=== PATIENT | male | born 1955 | race Caucasian/White ===

== ENCOUNTER 2019-04-06 08:55 | Outpatient (CLI) | payer MEDICARE ==
--- NOTE | 2019-04-06 11:13 | RAD ---
RADIOGRAPH CHEST 2 VIEWS: HISTORY: 63-year-old male with COPD presents with dyspnea. FINDINGS: There is no air space density, pulmonary edema, pleural effusion, pneumothorax, or cardiomegaly. IMPRESSION: No acute cardiopulmonary findings. jn [] POS: CET
== END 2019-04-06 08:56 | disposition home or self-care (01) ==
LOC: BICRAD 08:55
PROVIDERS: ATTEND Family Medicine
DX: J44.9 Chronic obstructive pulmonary disease, unspecified (principal); R06.09 Other forms of dyspnea
CPT/HCPCS: 36415; 71046; 80053; 80061; 81001; 85025

== ENCOUNTER 2019-06-29 14:37 | Outpatient (CLI) | payer MEDICARE, OTHER ==
--- NOTE | 2019-06-29 15:20 | RAD ---
XR Chest Pa Lat @ [facility] HISTORY: Dyspnea COMPARISON: 04/06/2019 FINDINGS: The heart size is normal. The lungs are well expanded without focal areas of consolidation, pneumothorax or pleural effusions. IMPRESSION: No radiographic evidence of acute cardiopulmonary process.
== END 2019-06-29 14:38 | disposition home or self-care (01) ==
LOC: RAD 14:37
PROVIDERS: ATTEND Family Medicine
DX: R06.00 Dyspnea, unspecified (principal)
CPT/HCPCS: 71046

== ENCOUNTER 2022-12-19 10:39 | Outpatient (CLI) | payer OTHER | END 2022-12-19 10:40 | disposition home or self-care (01) | LOC: BICCT 10:39 | PROVIDERS: ATTEND Family Medicine | DX: Z12.2 Encounter for screening for malignant neoplasm of respiratory organs (principal); F17.200 Nicotine dependence, unspecified, uncomplicated; J43.2 Centrilobular emphysema; K80.20 Calculus of gallbladder without cholecystitis without obstruction; N28.1 Cyst of kidney, acquired | CPT/HCPCS: 71271 ==

== ENCOUNTER 2025-06-03 08:23 | Outpatient (CLI) | payer MEDICARE | END 2025-06-03 08:24 | disposition home or self-care (01) | LOC: BICCT 08:23 | PROVIDERS: ATTEND Family Medicine | DX: Z13.6 Encounter for screening for cardiovascular disorders (principal); Z12.2 Encounter for screening for malignant neoplasm of respiratory organs; F17.218 Nicotine dependence, cigarettes, with other nicotine-induced disorders; I71.40 Abdominal aortic aneurysm, without rupture, unspecified; K80.20 Calculus of gallbladder without cholecystitis without obstruction | CPT/HCPCS: 71271; 76775 ==

== ENCOUNTER 2025-10-01 08:38 | Emergency (ER) | payer MEDICARE ==
[2025-10-01 10:17] LABS: #Basophils 0.06 10x3/uL (0.0-0.2); #Eosinophils 0.22 10x3/uL (0.0-0.7); #Monocytes 1.75 10x3/uL (0.11-0.59); #Neutrophils 10.80 10x3/uL (1.40-6.50); %Basophils 0.4 % (0.0-1.0); %Eosinophils 1.5 % (0.0-10.0); %Lymphocytes 14.0 % (21.0-51.0); %Monocytes 11.7 % (0.0-10.0); %Neutrophils 71.9 % (42.0-75.0); Hematocrit 43.0 % (42.0-52.0); Hemoglobin 14.9 g/dL (14.0-18.0); Mean Corpuscular Hemoglobin 30.2 pg (27.0-31.0); Mean Corpuscular Volume 87.0 fL (78.0-98.0); Platelet Count 298 10x3/uL (130-400); Red Blood Cell (RBC) Count 4.94 mill/uL (4.70-6.10); White Blood Cell (WBC) Count 15.02 10x3/uL (4.8-10.8)
[2025-10-01 10:43] LABS: ALT (SGPT) 34 U/L (Less than 45); AST (SGOT) 30 U/L (11-34); Albumin 4.2 g/dL (3.1-4.5); Alkaline Phosphatase 93 U/L (40-110); Anion Gap 13 mmol/L (10-20); BUN (Urea Nitrogen) 17 mg/dL (8.4-25.7); Bilirubin, Total 0.7 mg/dL (0.3-1.2); Calc. Creatinine Clearance 0 mL/min (70-130); Calcium 9.6 mg/dL (7.8-10.44); Carbon Dioxide 20 mmol/L (23-31); Chloride 108 mmol/L (98-107); Globulin 2.6 g/dL (2.4-3.5); Glucose 105 mg/dL (83-110); Potassium 4.2 mmol/L (3.5-5.1); Sodium 137 mmol/L (136-145)
[2025-10-01 10:53] LABS: Bacteria/HPF None Seen HPF (None Seen); CAUTI Indications for Culture Pelvic or flank pain; Glucose, Urine (Dipstick) Normal (Negative); Leukocyte 25 Leu/uL (Negative); Protein, Urine (Dipstick) 70 mg/dL (Neg-Trace); RBC/HPF 0-3 HPF (0-3); Specific Gravity, Urine 1.025 (1.002-1.036); WBC/HPF 0-3 HPF (0-3)
[2025-10-01 10:54] LABS: Urine Culture Reflex No No
[2025-10-01] MEDS ORDERED: cefTRIAXone (ROCEPHIN) 1 GM VIAL ONE (11:10)
[2025-10-01] MEDS ORDERED: Iopamidol-370 76% 500 ML MDV (1 ML CHARGE) ONE (13:24)
== END 2025-10-01 11:50 | disposition home or self-care (01) ==
LOC: ERS 08:38
DX: N30.91 Cystitis, unspecified with hematuria (principal); F17.210 Nicotine dependence, cigarettes, uncomplicated; J44.9 Chronic obstructive pulmonary disease, unspecified
CPT/HCPCS: 74178; 80053; 81001; 85025; J0696; J2272; Q9967; 96365; 96375